=== PATIENT | female | born 1965 | race Hispanic/Latino ===

== ENCOUNTER → 2025-05-19 | Outpatient (REF) | payer OTHER ==
[~2025-05-19] MED LIST: LIDOCAINE HCL 1% 30ML-PF VIAL ONE
== END ==
LOC: US 12:21
PROVIDERS: ATTEND Internal Medicine Hematology & Oncology
DX: M79.89 Other specified soft tissue disorders (principal)
CPT/HCPCS: 10160; 20206; 76942; 87070; 87071; 87075; 87205; 88305; 88312; J2003; 88304